=== PATIENT | female | born 1980 | race Hispanic/Latino ===

== ENCOUNTER 2019-09-11 16:59 | Emergency (ER) | payer SELFPAY ==
[2019-09-11] MEDS ORDERED: METHYLPREDNISOLONE SOD SUCC 40MG/ML 1ML ONE (17:39)
[2019-09-11] MEDS ORDERED: GUAIFENESIN-DM 200/20 MG 10 ML ONE (17:39)
[2019-09-11] MEDS ORDERED: IPRATROPIUM/ALBUTEROL SULFATE 3 ML SOLUTION IH ONE (18:36)
== END 2019-09-11 19:08 | disposition home or self-care (01) ==
LOC: EDH 16:59
DX: J20.9 Acute bronchitis, unspecified (principal); Z98.890 Other specified postprocedural states
CPT/HCPCS: 94640; 96372; 99283; J2920